=== PATIENT | male | born 1965 | race Caucasian/White ===

== ENCOUNTER 2022-03-18 13:45 | Outpatient (RCR) | payer OTHER, SELFPAY ==
[2022-03-11 08:15] VITALS: BP 134/85; BMI 29.5
--- NOTE | 2022-03-11 15:44 | HP.PCM_ITS ---
History of Present Illness Date of Service: 03/11/22 Chief Complaint: Open wound, left medial knee History of Wound: This is a 56-year-old male who sustained an injury to his left medial knee approximately 10 weeks ago. The wound occurred when a log rolled onto his left leg. He sustained a puncture wound to the left medial knee as result of contact with a log. He did not seek medical attention initially, but presented several weeks later to the urgent care center, at which time localized cellulitis had developed. He was started on Bactrim orally at that time. After several visits to the urgent care center on an outpatient basis, he subsequently presented at [facility] in [place], [place], where he was admitted with cellulitis and treated as an inpatient for 3 days. During his inpatient management, he underwent surgical incision and drainage of an abscess by Dr. Monroy, orthopedic surgeon. Patient has been on cephalexin and Bactrim orally since that time. According to the patient, no foreign body was identified within the wound itself. The wound has failed to heal. He has continued to have apparent low-level cellulitis since his hospitalization. He is also had mild swelling in his left lower extremity. 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 He is not diabetic, and he is not a smoker. The patient is of relatively normal body weight, with a BMI of 29.5. [facility] Medical History Cellulitis and abscess of left leg Penetrating wound of left thigh Home Medications Ranitidine [Zantac] 150 mg PO DAILY 02/03/13 [History Last Taken Unknown] Vitamin B Complex 1 tab PO DAILY 02/03/13 [History Last Taken Unknown] Allergy/AdvReac Type Severity Reaction Status Date / Time No Known Allergies Allergy Verified 02/03/13 16:51 Surgical History History of bilateral cataract extraction Social History Smoking Status: Former smoker Vital Signs Vital Signs Vital Signs: 03/11/22 08:15 Temperature Source Temporal Blood Pressure 134/85 H Blood Pressure Mean 101 Blood Pressure Source Monitor Blood Pressure Position Semi-Fowlers Blood Pressure Location Right Arm Weight Weight: 200 lb Body Mass Index (BMI) 29.5 Physical Exam Const alert, oriented x3, no apparent distress, average body habitus and well nourished General Appearance: cooperative, comfortable, well kempt and well developed Orientation / Consciousness: awake, oriented to person, oriented to place and oriented to time Exam Limitations: no limitations HEENT normocephalic, head/scalp atraumatic, hearing grossly normal bilaterally and external ears normal Head and Scalp: normal to inspection, normocephalic and atraumatic External Ear: external ears normal Eyes PERRL and EOMs intact bilaterally General Eye: normal appearance of both eyes Neck full ROM Resp normal respiratory effort, normal air movement, no retractions and no use of accessory muscles Effort and Inspection: able to speak in complete sentences Extremity no calf tenderness General Extremity: Negative for clubbing or cyanosis Skin Wound Narrative: A small open wound is noted on the medial aspect of the patient's left knee. Dimensions are documented elsewhere. There is a moderate amount of bioburden. Erythema is noted in the periwound area, extending into the calf. The erythema appears cellulitic in nature, though not intense. Neuro oriented x3, CN's II-XII intact bilaterally and moves all extremities Sensorium / Orientation: awake, alert, oriented to person, oriented to place and oriented to time Psych Appearance: grossly normal and appropriate Attitude: calm Activity / Motor Behavior: appropriate eye contact Speech: normal speech Mood & Affect: euthymic mood Thought Process: normal thought process Thought Content: normal thought content Attention / Concentration: attention grossly intact Debridement Note Debridement Note Wound debrided: Left medial knee Laterality: Left Type of Debridement: Excisional debridement Anesthesia Used: 5% Lidocaine Gel Depth: Down to and including healthy tissue and in the subcutaneous layer Percentage of wound debrided: 100 Instrument Used: 3mm curette Tissue Removed: Bioburden and nonviable tissue Severity: Fat Layer Exposed Amount of bleeding with debridement: Mild Bleeding Controlled with: Compression and gauze Patient tolerated procedure: Patient tolerated procedure well Post-Debridement Measurements and Additional Note: Post-Debridement Measurements/Treatment CORINA - Nurse 1 - General Ulcer Assessment Start: 03/11/22 08:15 Freq: Status: Active Protocol: DAHIANA Activity Type Activity Date Activity User E-sign Co-sign Detail Recorded Client Recorded Date Recorded By Document 03/11/22 08:15 SABRA [id number] 03/11/22 08:23 SABRA 03/11/22 08:15 WC - Today's Visit Information Type of service Initial Visit Arrival Mode Ambulatory Patient Identification Verified (Name & Yes ) Height and Weight Height 5 ft 9 in Weight 200 lb Weight in Pounds 200.0 lbs Body Mass Index (BMI) 29.5 BMI Classification Overweight BSA - Waldemar 2.07 Vital Signs Temperature Source Temporal Pulse Location Monitor Blood Pressure (90/60-120/80) 134/85 H Blood Pressure Mean 101 Source Monitor Position Semi-Fowlers Blood Pressure Location Right Arm History Since Last Visit- (Skip if this is Patient's initial visit) Have you changed medications since your No last visit? Any new allergies or adverse reactions No Had a fall/change in ADL's that may No increase risk of falls Signs or symptoms of abuse and/or No neglect since last visit Have you been in the hospital since your No last visit? Has dressing in place as prescribed No Has compression in place as prescribed N/A Has offloadiing in place as prescribed N/A Experienced any changes in pain level or No management Left Footwear Regular Shoe Right Footwear Regular Shoe Pain Scale: 0-10 Numeric Is Patient Pain Free? Yes - Nurse 1 - General Ulcer Measurement Start: 03/11/22 08:15 Freq: Status: Active Protocol: Activity Type Activity Date Activity User E-sign Co-sign Detail Recorded Client Recorded Date Recorded By Document 03/11/22 08:15 SABRA [id number] 03/11/22 08:23 SABRA 03/11/22 08:15 Wound Center Nurse 1 #1 Left medial knee -Current Size (cm) - Length 0.8 -Current Size (cm) - Width 0.4 -Current Size (cm) - Depth 0.1 -Total Square Cm 0.32 -Exudate Amt None Present -Wound Margin Distinct, Outline Attached -Granulation Amt Small (1-33%) -Granulation Quality [place] -Necrosis Amt None Present (0 %) -Texture (Nannette-wound Skin Appearance) Assessed, Scarring -Moisture (Nannette-wound Skin Appearance) No Abnormality, Assessed -Color (Nannette-wound Skin Appearance) No Abnormality, Assessed -Temperature (Nannette-wound Skin No Abnormality Appearance) (Pt Warm) -Tenderness on Palpation (Nannette-wound No Skin Appearance) -Ulcer Cleansing Rinsed/ Irrigated with Saline -Foul Odor after Cleansing No -Anesthetic Used 5% Lidocaine Gel Right Calf (cm) 38 Right Ankle (cm) 23.5 Left Calf (cm) 35.5 Left Ankle (cm) 25.5 WC - Nurse 2 - General Ulcer CM Notes Start: 03/11/22 08:15 Freq: Status: Active Protocol: Activity Type Activity Date Activity User E-sign Co-sign Detail Recorded Client Recorded Date Recorded By Document 03/11/22 11:54 PL [id number] 03/11/22 11:55 PL 03/11/22 11:54 Wound Center Nurse 2 #1 Left medial knee -Time 08:45 -Correct Patient Yes -Correct Side, Site, Position Yes -Correct Procedure Yes -Procedure Performed Yes -Type of Procedure Debridement -Clinical Debridement Subcutaneous -Tissue Removed Subcutaneous -Post Debridement (cm) - Length 0.8 -Post Debridement (cm) - Width 0.4 -Post Debridement (cm) - Depth 0.1 -Total Square (Post) (cm) 0.32 -Area of Debridement (cm) - Length 0.8 -Area of Debridement (cm) - Width 0.4 -Total Square (Area) (cm) 0.32 -Tunneling No -Undermining/Tunneling No -Circular Undermining No -Wound/Ulcer Outcome Not Healed -Ulcer Cleansing Rinsed/ Irrigated with Saline -Foul Odor after Cleansing No -Bioengineered Tissue No -Bleeding Controlled with Pressure -Treatment Response Procedure Tolerated Well -Debridement - Subq, 1st 20sq cm Yes Pain Scale: 0-10 Numeric Is Patient Pain Free? Yes - Nurse 3 - General Ulcer D/C NN Start: 03/11/22 08:15 Freq: Status: Active Protocol: Activity Type Activity Date Activity User E-sign Co-sign Detail Recorded Client Recorded Date Recorded By Document 03/11/22 09:30 KR [id number] 03/11/22 09:31 KR 03/11/22 09:30 Wound Care Nurse 3 #1 Left medial knee -Ulcer Cleansing Rinsed/ Irrigated with Saline -Primary Dressing Applied Nugauze, Iodoform -Other Dressing dakins -Primary Dressing Covered/Secured with Dry Gauze, Secured with Tape -Nugauze, Iodoform 1/4 1 Right -Size of Tubigrip Used Size F Pain Scale: 0-10 Numeric Is Patient Pain Free? Yes WC - Visit Discharge Discharge Condition Stable Ambulatory Status Ambulatory Transportation Private Auto Assessment/Plan Assessment/Plan (1) Penetrating wound of left thigh: CODE(S): S71.132A - Puncture wound without foreign body, left thigh, initial encounter QUALIFIERS: Encounter type: initial encounter Qualified Code(s): S71.132A - Puncture wound without foreign body, left thigh, initial encounter (2) Cellulitis and abscess of left leg: CODE(S): L03.116 - Cellulitis of left lower limb; L02.416 - Cutaneous abscess of left lower limb (3) History of bilateral cataract extraction: CODE(S): Z98.41 - Cataract extraction status, right eye; Z98.42 - Cataract extraction status, left eye PLAN: Plan This is a 56-year-old male who sustained a puncture wound to the left medial knee approximately 10 weeks ago. He has been treated for cellulitis, both as an outpatient, and a 3-day inpatient course at [facility] in [place], [place]. He remains on both Bactrim and cephalexin orally. Patient's wound has been debrided in the wound healing center today. We are to implement the use of 1/4 inch Nu Gauze, moistened with Dakin's, which will be used to pack the wound on a daily basis. The patient has been instructed in appropriate means of application. He has been instructed to continue with the oral antibiotics, as previously prescribed. He is to return in 1 week for reeva luation. [facility] The patient has been encouraged to consume a healthy, well-balanced diet. Total time: 60 minutes
[2022-03-18 13:19] VITALS: BP 138/93; PULSE 92; TEMP 36.2; BMI 29.5
--- NOTE | 2022-03-18 14:21 | HP.PCM_ITS ---
History of Present Illness Date of Service: 03/18/22 Chief Complaint: Open wound, left medial knee History of Wound: This is a 56-year-old male who sustained an injury to his left medial knee approximately 10 weeks . The wound occurred when a log rolled onto his left leg. He sustained a puncture wound to the left medial knee as result of contact with a log. He did not seek medical attention initially, but presented several weeks later to the urgent care center, at which time localized cellulitis had developed. He was started on Bactrim orally at that time. After several visits to the urgent care center on an outpatient basis, he subsequently presented at [facility] in [place], [place], where he was admitted with cellulitis and treated as an inpatient for 3 days. During his inpatient management, he underwent surgical incision and drainage of an abscess by Dr. Monroy, orthopedic surgeon. Patient has been on cephalexin and Bactrim orally since that time. According to the patient, no foreign body was identified within the wound itself. The wound has failed to heal. He has continued to have apparent low-level cellulitis since his hospitalization. He is also had mild swelling in his left lower extremity. 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 He is not diabetic, and he is not a smoker. The patient is of relatively normal body weight, with a BMI of 29.5. [facility] Medical History Cellulitis and abscess of left leg Penetrating wound of left thigh Home Medications Ranitidine [Zantac] 150 mg PO DAILY 02/03/13 [History Last Taken Unknown] Vitamin B Complex 1 tab PO DAILY 02/03/13 [History Last Taken Unknown] Allergy/AdvReac Type Severity Reaction Status Date / Time No Known Allergies Allergy Verified 02/03/13 16:51 Surgical History History of bilateral cataract extraction Social History Smoking Status: Former smoker Vital Signs Vital Signs Vital Signs: 03/18/22 13:19 Temperature 97.2 F L Temperature Source Temporal Pulse Rate 92 Blood Pressure 138/93 H Blood Pressure Mean 108 Blood Pressure Source Monitor Weight Weight: 200 lb Body Mass Index (BMI) 29.5 Debridement Note Debridement Note Post-Debridement Measurements and Additional Note: Post-Debridement Measurements/Treatment CORINA - Nurse 1 - General Ulcer Assessment Start: 03/11/22 08:15 Freq: Status: Active Protocol: DAHIANA Activity Type Activity Date Activity User E-sign Co-sign Detail Recorded Client Recorded Date Recorded By Document 03/11/22 08:15 KR [id number] 03/11/22 08:23 KR Document 03/18/22 13:19 AK [id number] 03/18/22 13:20 AK 03/11/22 03/18/22 08:15 13:19 WC - Today's Visit Information Type of service Initial Visit Follow-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 ) Arrival Mode Ambulatory Ambulatory Patient Identification Verified (Name & Yes Yes ) Patient Requires Transmission-Based No Precautions Safety Precautions NA Height and Weight Height 5 ft 9 in Weight 200 lb Weight in Pounds 200.0 lbs Body Mass Index (BMI) 29.5 29.5 BMI Classification Overweight Overweight BSA - Waldemar 2.07 Vital Signs Temperature (97.8 F-99.1 F) 97.2 F L Temperature Source Temporal Temporal Pulse Rate (60-100) 92 Pulse Location Monitor Monitor Blood Pressure (90/60-120/80) 134/85 H 138/93 H Blood Pressure Mean 101 108 Source Monitor Monitor Position Semi-Fowlers Blood Pressure Location Right Arm History Since Last Visit- (Skip if this is Patient's initial visit) Have you changed medications since your No No last visit? Any new allergies or adverse reactions No No Had a fall/change in ADL's that may No No increase risk of falls Signs or symptoms of abuse and/or No No neglect since last visit Have you been in the hospital since your No No last visit? Has dressing in place as prescribed No Yes Has compression in place as prescribed N/A N/A Has offloadiing in place as prescribed N/A N/A Experienced any changes in pain level or No No management Left Footwear Regular Shoe Regular Shoe Right Footwear Regular Shoe Regular Shoe Pain Scale: 0-10 Numeric Is Patient Pain Free? Yes Yes CORINA - Nurse 1 - General Ulcer Measurement Start: 03/11/22 08:15 Freq: Status: Active Protocol: Activity Type Activity Date Activity User E-sign Co-sign Detail Recorded Client Recorded Date Recorded By Document 03/11/22 08:15 KR [id number] 03/11/22 08:23 KR Document 03/18/22 13:19 AK [id number] 03/18/22 13:20 AK 03/11/22 03/18/22 08:15 13:19 Wound Center Nurse 1 #1 Left medial knee -Combined with other wound No -Current Size (cm) - Length 0.8 0.3 -Current Size (cm) - Width 0.4 0.3 -Current Size (cm) - Depth 0.1 0.2 -Total Square Cm 0.32 0.09 -Photo Taken Yes -Tunneling No -Undermining/Tunneling No -Circular Undermining No -Change in Wound Grade/Stage No -Exudate Amt None Present None Present -Wound Margin Distinct, Outline Attached -Granulation Amt Small (1-33%) None Present (0 %) -Granulation Quality [place] N/A -Slough/Fibrin No -Necrosis Amt None Present (0 None Present (0 %) %) -Structure Exposed N/A -Texture (Nannette-wound Skin Appearance) Assessed, No Abnormality, Scarring Assessed -Moisture (Nannette-wound Skin Appearance) No Abnormality, No Abnormality, Assessed Assessed -Color (Nannette-wound Skin Appearance) No Abnormality, No Abnormality, Assessed Assessed -Temperature (Nannette-wound Skin No Abnormality No Abnormality Appearance) (Pt Warm) (Pt Warm) -Tenderness on Palpation (Nannette-wound No No Skin Appearance) -Ulcer Cleansing Rinsed/ Rinsed/ Irrigated with Irrigated with Saline Saline -Foul Odor after Cleansing No No -Anesthetic Used 5% Lidocaine 5% Lidocaine Gel Gel Lower Limb Edema Present No Right Calf (cm) 38 Right Ankle (cm) 23.5 Left Calf (cm) 35.5 Left Ankle (cm) 25.5 WC - Nurse 2 - General Ulcer CM Notes Start: 03/11/22 08:15 Freq: Status: Active Protocol: Activity Type Activity Date Activity User E-sign Co-sign Detail Recorded Client Recorded Date Recorded By Document 03/11/22 11:54 PL [id number] 03/11/22 11:55 PL 03/11/22 11:54 Wound Center Nurse 2 #1 Left medial knee -Time 08:45 -Correct Patient Yes -Correct Side, Site, Position Yes -Correct Procedure Yes -Procedure Performed Yes -Type of Procedure Debridement -Clinical Debridement Subcutaneous -Tissue Removed Subcutaneous -Post Debridement (cm) - Length 0.8 -Post Debridement (cm) - Width 0.4 -Post Debridement (cm) - Depth 0.1 -Total Square (Post) (cm) 0.32 -Area of Debridement (cm) - Length 0.8 -Area of Debridement (cm) - Width 0.4 -Total Square (Area) (cm) 0.32 -Tunneling No -Undermining/Tunneling No -Circular Undermining No -Wound/Ulcer Outcome Not Healed -Ulcer Cleansing Rinsed/ Irrigated with Saline -Foul Odor after Cleansing No -Bioengineered Tissue No -Bleeding Controlled with Pressure -Treatment Response Procedure Tolerated Well -Debridement - Subq, 1st 20sq cm Yes Pain Scale: 0-10 Numeric Is Patient Pain Free? Yes WC - Nurse 3 - General Ulcer D/C NN Start: 03/11/22 08:15 Freq: Status: Active Protocol: Activity Type Activity Date Activity User E-sign Co-sign Detail Recorded Client Recorded Date Recorded By Document 03/11/22 09:30 [id number] 03/11/22 09:31 KR Document 03/18/22 13:50 [id number] 03/18/22 13:51 03/11/22 03/18/22 09:30 13:50 Wound Care Nurse 3 #1 Left medial knee -Ulcer Cleansing Rinsed/ Rinsed/ Irrigated with Irrigated with Saline Saline -Primary Dressing Applied Nugauze, Iodoform -Other Dressing dakins dakins -Primary Dressing Covered/Secured with Dry Gauze, Dry Gauze, Secured with Secured with Tape Tape -Nugauze, Iodoform 1/4 1 Right -Size of Tubigrip Used Size F Pain Scale: 0-10 Numeric Is Patient Pain Free? Yes Yes WC - Visit Discharge Discharge Condition Stable Stable Ambulatory Status Ambulatory Ambulatory Transportation Private Auto Private Auto
--- NOTE | 2022-03-18 14:45 | HP.PCM_ITS ---
History of Present Illness Date of Service: 03/18/22 Chief Complaint: Open wound, left medial knee History of Wound: This is a 56-year-old male who sustained an injury to his left medial knee approximately 10 weeks prior to presentation. The wound occurred when a log rolled onto his left leg. He sustained a puncture wound to the left medial knee as result of contact with a log. He did not seek medical attention initially, but presented several weeks later to the urgent care center, at which time localized cellulitis had developed. He was started on Bactrim orally at that time. After several visits to the urgent care center on an outpatient basis, he subsequently presented at [facility] in [place], [place], where he was admitted with cellulitis and treated as an inpatient for 3 days. During his inpatient management, he underwent surgical incision and drainage of an abscess by Dr. Monroy, orthopedic surgeon. Patient has been on cephalexin and Bactrim orally since that time. According to the patient, no foreign body was identified within the wound itself. The wound has failed to heal. He has continued to have apparent low-level cellulitis since his hospitalization. He is also had mild swelling in his left lower extremity. 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 He is not diabetic, and he is not a smoker. The patient is of relatively normal body weight, with a BMI of 29.5. [facility] Medical History Cellulitis and abscess of left leg Penetrating wound of left thigh Home Medications Ranitidine [Zantac] 150 mg PO DAILY 02/03/13 [History Last Taken Unknown] Vitamin B Complex 1 tab PO DAILY 02/03/13 [History Last Taken Unknown] Allergy/AdvReac Type Severity Reaction Status Date / Time No Known Allergies Allergy Verified 02/03/13 16:51 Surgical History History of bilateral cataract extraction Social History Smoking Status: Former smoker Vital Signs Vital Signs Vital Signs: 03/18/22 13:19 Temperature 97.2 F L Temperature Source Temporal Pulse Rate 92 Blood Pressure 138/93 H Blood Pressure Mean 108 Blood Pressure Source Monitor Weight Weight: 200 lb Body Mass Index (BMI) 29.5 Physical Exam Const alert, oriented x3, no apparent distress, average body habitus and well nourished General Appearance: cooperative, comfortable, well kempt and well developed Orientation / Consciousness: awake, oriented to person, oriented to place and oriented to time Exam Limitations: no limitations HEENT normocephalic, head/scalp atraumatic, hearing grossly normal bilaterally and external ears normal Head and Scalp: normal to inspection, normocephalic and atraumatic External Ear: external ears normal Eyes PERRL and EOMs intact bilaterally General Eye: normal appearance of both eyes Neck full ROM Resp normal respiratory effort, normal air movement, no retractions and no use of accessory muscles Effort and Inspection: able to speak in complete sentences Extremity no calf tenderness General Extremity: Negative for clubbing or cyanosis Skin Wound Narrative: A small open wound is noted on the medial aspect of the patient's left knee. Dimensions are documented elsewhere. The wound is smaller than noted 1 week ago. There is a moderate amount of bioburden. No significant erythema is noted in the periwound area, signifying an improvement since 1 week ago. Neuro oriented x3, CN's II-XII intact bilaterally and moves all extremities Sensorium / Orientation: awake, alert, oriented to person, oriented to place and oriented to time Psych Appearance: grossly normal and appropriate Attitude: calm Activity / Motor Behavior: appropriate eye contact Speech: normal speech Mood & Affect: euthymic mood Thought Process: normal thought process Thought Content: normal thought content Attention / Concentration: attention grossly intact Debridement Note Debridement Note Wound debrided: Left medial knee Laterality: Left Type of Debridement: Excisional debridement Anesthesia Used: 5% Lidocaine Gel Depth: Down to and including healthy tissue and in the subcutaneous layer Percentage of wound debrided: 100 Instrument Used: 3mm curette Tissue Removed: Bioburden and nonviable tissue Severity: Fat Layer Exposed Amount of bleeding with debridement: Mild Bleeding Controlled with: Compression and gauze Patient tolerated procedure: Patient tolerated procedure well Post-Debridement Measurements and Additional Note: Post-Debridement Measurements/Treatment CORINA - Nurse 1 - General Ulcer Assessment Start: 03/11/22 08:15 Freq: Status: Active Protocol: DAHIANA Activity Type Activity Date Activity User E-sign Co-sign Detail Recorded Client Recorded Date Recorded By Document 03/11/22 08:15 SABRA [id number] 03/11/22 08:23 KR Document 03/18/22 13:19 AK [id number] 03/18/22 13:20 AK 03/11/22 03/18/22 08:15 13:19 - Today's Visit Information Type of service Initial Visit Follow-up Visit (Physician/MANAGER M[employer] ) Arrival Mode Ambulatory Ambulatory Patient Identification Verified (Name & Yes Yes ) Patient Requires Transmission-Based No Precautions Safety Precautions NA Height and Weight Height 5 ft 9 in Weight 200 lb Weight in Pounds 200.0 lbs Body Mass Index (BMI) 29.5 29.5 BMI Classification Overweight Overweight BSA - Waldemar 2.07 Vital Signs Temperature (97.8 F-99.1 F) 97.2 F L Temperature Source Temporal Temporal Pulse Rate (60-100) 92 Pulse Location Monitor Monitor Blood Pressure (90/60-120/80) 134/85 H 138/93 H Blood Pressure Mean 101 108 Source Monitor Monitor Position Semi-Fowlers Blood Pressure Location Right Arm History Since Last Visit- (Skip if this is Patient's initial visit) Have you changed medications since your No No last visit? Any new allergies or adverse reactions No No Had a fall/change in ADL's that may No No increase risk of falls Signs or symptoms of abuse and/or No No neglect since last visit Have you been in the hospital since your No No last visit? Has dressing in place as prescribed No Yes Has compression in place as prescribed N/A N/A Has offloadiing in place as prescribed N/A N/A Experienced any changes in pain level or No No management Left Footwear Regular Shoe Regular Shoe Right Footwear Regular Shoe Regular Shoe Pain Scale: 0-10 Numeric Is Patient Pain Free? Yes Yes - Nurse 1 - General Ulcer Measurement Start: 03/11/22 08:15 Freq: Status: Active Protocol: Activity Type Activity Date Activity User E-sign Co-sign Detail Recorded Client Recorded Date Recorded By Document 03/11/22 08:15 SABRA [id number] 03/11/22 08:23 KR Document 03/18/22 13:19 SHASHANK [id number] 03/18/22 13:20 SHASHANK 03/11/22 03/18/22 08:15 13:19 Wound Center Nurse 1 #1 Left medial knee -Combined with other wound No -Current Size (cm) - Length 0.8 0.3 -Current Size (cm) - Width 0.4 0.3 -Current Size (cm) - Depth 0.1 0.2 -Total Square Cm 0.32 0.09 -Photo Taken Yes -Tunneling No -Undermining/Tunneling No -Circular Undermining No -Change in Wound Grade/Stage No -Exudate Amt None Present None Present -Wound Margin Distinct, Outline Attached -Granulation Amt Small (1-33%) None Present (0 %) -Granulation Quality Tatum N/A -Slough/Fibrin No -Necrosis Amt None Present (0 None Present (0 %) %) -Structure Exposed N/A -Texture (Nannette-wound Skin Appearance) Assessed, No Abnormality, Scarring Assessed -Moisture (Nannette-wound Skin Appearance) No Abnormality, No Abnormality, Assessed Assessed -Color (Nannette-wound Skin Appearance) No Abnormality, No Abnormality, Assessed Assessed -Temperature (Nannette-wound Skin No Abnormality No Abnormality Appearance) (Pt Warm) (Pt Warm) -Tenderness on Palpation (Nannette-wound No No Skin Appearance) -Ulcer Cleansing Rinsed/ Rinsed/ Irrigated with Irrigated with Saline Saline -Foul Odor after Cleansing No No -Anesthetic Used 5% Lidocaine 5% Lidocaine Gel Gel Lower Limb Edema Present No Right Calf (cm) 38 Right Ankle (cm) 23.5 Left Calf (cm) 35.5 Left Ankle (cm) 25.5 WC - Nurse 2 - General Ulcer CM Notes Start: 03/11/22 08:15 Freq: Status: Active Protocol: Activity Type Activity Date Activity User E-sign Co-sign Detail Recorded Client Recorded Date Recorded By Document 03/11/22 11:54 PL [id number] 03/11/22 11:55 PL 03/11/22 11:54 Wound Center Nurse 2 #1 Left medial knee -Time 08:45 -Correct Patient Yes -Correct Side, Site, Position Yes -Correct Procedure Yes -Procedure Performed Yes -Type of Procedure Debridement -Clinical Debridement Subcutaneous -Tissue Removed Subcutaneous -Post Debridement (cm) - Length 0.8 -Post Debridement (cm) - Width 0.4 -Post Debridement (cm) - Depth 0.1 -Total Square (Post) (cm) 0.32 -Area of Debridement (cm) - Length 0.8 -Area of Debridement (cm) - Width 0.4 -Total Square (Area) (cm) 0.32 -Tunneling No -Undermining/Tunneling No -Circular Undermining No -Wound/Ulcer Outcome Not Healed -Ulcer Cleansing Rinsed/ Irrigated with Saline -Foul Odor after Cleansing No -Bioengineered Tissue No -Bleeding Controlled with Pressure -Treatment Response Procedure Tolerated Well -Debridement - Subq, 1st 20sq cm Yes Pain Scale: 0-10 Numeric Is Patient Pain Free? Yes - Nurse 3 - General Ulcer D/C NN Start: 03/11/22 08:15 Freq: Status: Active Protocol: Activity Type Activity Date Activity User E-sign Co-sign Detail Recorded Client Recorded Date Recorded By Document 03/11/22 09:30 SABRA [id number] 03/11/22 09:31 KR Document 03/18/22 13:50 [id number] 03/18/22 13:51 03/11/22 03/18/22 09:30 13:50 Wound Care Nurse 3 #1 Left medial knee -Ulcer Cleansing Rinsed/ Rinsed/ Irrigated with Irrigated with Saline Saline -Primary Dressing Applied Nugauze, Iodoform -Other Dressing dakins dakins -Primary Dressing Covered/Secured with Dry Gauze, Dry Gauze, Secured with Secured with Tape Tape -Nugauze, Iodoform 1/4 1 Right -Size of Tubigrip Used Size F Pain Scale: 0-10 Numeric Is Patient Pain Free? Yes Yes - Visit Discharge Discharge Condition Stable Stable Ambulatory Status Ambulatory Ambulatory Transportation Private Auto Private Auto Assessment/Plan Assessment/Plan (1) Penetrating wound of left thigh: CODE(S): S71.132A - Puncture wound without foreign body, left thigh, initial encounter QUALIFIERS: Encounter type: initial encounter Qualified Code(s): S71.132A - Puncture wound without foreign body, left thigh, initial encounter (2) Cellulitis and abscess of left leg: CODE(S): L03.116 - Cellulitis of left lower limb; L02.416 - Cutaneous abscess of left lower limb (3) History of bilateral cataract extraction: CODE(S): Z98.41 - Cataract extraction status, right eye; Z98.42 - Cataract extraction status, left eye PLAN: Plan This is a 56-year-old male who sustained a puncture wound to the left medial knee approximately 10 weeks prior to presentation. He had been treated for cellulitis, both as an outpatient, and a 3-day inpatient course at [facility] in [place], [place]. He remained on both Bactrim and cephalexin orally, which have now been completed. Patient's wound has been debrided in the wound healing center today. We are to continue the use of 1/4 inch Nu Gauze, moistened with Dakin's, which will be used to pack the wound on a daily basis. He is to elevate his lower extremities much as possible, and use Tubigrip for compression in the left lower extremity. He is to return in 1 week for reevaluation. We will attempt to obtain medical records from the outlying hospital. The patient has been encouraged to consume a healthy, well-balanced diet. Swab cultures of the wound obtained last week are seen to be negative. Total time: 29 minutes
== END 2022-03-19 23:59 | disposition home or self-care (01) ==
LOC: WC 13:45
PROVIDERS: PCP Nurse Practitioner Family; Visit Provider Surgery
DX: S81.032D Puncture wound without foreign body, left knee, subsequent encounter (principal); S71.132A Puncture wound without foreign body, left thigh, initial encounter; S71.132D Puncture wound without foreign body, left thigh, subsequent encounter; L03.116 Cellulitis of left lower limb; L02.416 Cutaneous abscess of left lower limb; W26.8XXD Contact with other sharp object(s), not elsewhere classified, subsequent encounter; Z87.891 Personal history of nicotine dependence; M79.89 Other specified soft tissue disorders
CPT/HCPCS: 11042; 87070; 87075; 87205; 99213; G0463

== ENCOUNTER 2022-03-25 08:19 | Outpatient (RCR) | payer OTHER, SELFPAY ==
[2022-03-20 00:43] VITALS: BP 138/93; PULSE 92; TEMP 36.2; BMI 29.5
[2022-03-25 08:25] VITALS: BP 146/85; PULSE 75; TEMP 35.7; BMI 29.5
--- NOTE | 2022-03-25 15:49 | HP.PCM_ITS ---
History of Present Illness Date of Service: 03/25/22 Chief Complaint: Open wound, left medial knee History of Wound: This is a 56-year-old male who sustained an injury to his left medial knee approximately 10 weeks prior to presentation. The wound occurred when a log rolled onto his left leg. He sustained a puncture wound to the left medial knee as result of contact with a log. He did not seek medical attention initially, but presented several weeks later to the urgent care center, at which time localized cellulitis had developed. He was started on Bactrim orally at that time. After several visits to the urgent care center on an outpatient basis, he subsequently presented at [facility] in [place], [place], where he was admitted with cellulitis and treated as an inpatient for 3 days. During his inpatient management, he underwent surgical incision and drainage of an abscess by Dr. Monroy, orthopedic surgeon. Patient has been on cephalexin and Bactrim orally since that time. According to the patient, no foreign body was identified within the wound itself. The wound has failed to heal. He has continued to have apparent low-level cellulitis since his hospitalization. He is also had mild swelling in his left lower extremity. 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 He is not diabetic, and he is not a smoker. The patient is of relatively normal body weight, with a BMI of 29.5. [facility] Medical History Cellulitis and abscess of left leg Penetrating wound of left thigh Home Medications Ranitidine [Zantac] 150 mg PO DAILY 02/03/13 [History Last Taken Unknown] Vitamin B Complex 1 tab PO DAILY 02/03/13 [History Last Taken Unknown] Allergy/AdvReac Type Severity Reaction Status Date / Time No Known Allergies Allergy Verified 02/03/13 16:51 Surgical History History of bilateral cataract extraction Social History Smoking Status: Former smoker Vital Signs Vital Signs Vital Signs: 03/25/22 08:25 Temperature 96.2 F L Temperature Source Temporal Pulse Rate 75 Blood Pressure 146/85 H Blood Pressure Mean 105 Blood Pressure Source Monitor Weight Weight: 200 lb Body Mass Index (BMI) 29.5 Physical Exam Const alert, oriented x3, no apparent distress, average body habitus and well nourished General Appearance: cooperative, comfortable, well kempt and well developed Orientation / Consciousness: awake, oriented to person, oriented to place and oriented to time Exam Limitations: no limitations HEENT normocephalic, head/scalp atraumatic, hearing grossly normal bilaterally and external ears normal Head and Scalp: normal to inspection, normocephalic and atraumatic External Ear: external ears normal Eyes PERRL and EOMs intact bilaterally General Eye: normal appearance of both eyes Neck full ROM Resp normal respiratory effort, normal air movement, no retractions and no use of accessory muscles Effort and Inspection: able to speak in complete sentences Extremity no calf tenderness General Extremity: Negative for clubbing or cyanosis Skin Wound Narrative: The traumatic wound on the medial aspect of the patient's left knee is now completely healed and epithelialized. Neuro oriented x3, CN's II-XII intact bilaterally and moves all extremities Sensorium / Orientation: awake, alert, oriented to person, oriented to place and oriented to time Psych Appearance: grossly normal and appropriate Attitude: calm Activity / Motor Behavior: appropriate eye contact Speech: normal speech Mood & Affect: euthymic mood Thought Process: normal thought process Thought Content: normal thought content Attention / Concentration: attention grossly intact Debridement Note Debridement Note No debridement was completed: No debridement was completed today (The patient's wound is completely healed.) Post-Debridement Measurements and Additional Note: Post-Debridement Measurements/Treatment - Nurse 1 - General Ulcer Assessment Start: 03/25/22 08:23 Freq: Status: Active Protocol: DAHIANA Activity Type Activity Date Activity User E-sign Co-sign Detail Recorded Client Recorded Date Recorded By Document 03/25/22 08:25 SHASHANK [id number] 03/25/22 08:40 SHASHANK 03/25/22 08:25 - Today's Visit Information Type of service Follow-up Visit (Physician/SENIOR GIS ANALYST ) Arrival Mode Ambulatory Patient Identification Verified (Name & Yes ) Patient Requires Transmission-Based No Precautions Safety Precautions NA Height and Weight Body Mass Index (BMI) 29.5 BMI Classification Overweight Vital Signs Temperature (97.8 F-99.1 F) 96.2 F L Temperature Source Temporal Pulse Rate (60-100) 75 Pulse Location Monitor Blood Pressure (90/60-120/80) 146/85 H Blood Pressure Mean 105 Source Monitor History Since Last Visit- (Skip if this is Patient's initial visit) Have you changed medications since your No last visit? Any new allergies or adverse reactions No Had a fall/change in ADL's that may No increase risk of falls Signs or symptoms of abuse and/or No neglect since last visit Have you been in the hospital since your No last visit? Has dressing in place as prescribed Yes Has compression in place as prescribed Yes Has offloadiing in place as prescribed N/A Experienced any changes in pain level or No management Left Footwear Regular Shoe Right Footwear Regular Shoe Pain Scale: 0-10 Numeric Is Patient Pain Free? Yes WC - Nurse 1 - General Ulcer Measurement Start: 03/25/22 08:23 Freq: Status: Active Protocol: Activity Type Activity Date Activity User E-sign Co-sign Detail Recorded Client Recorded Date Recorded By Document 03/25/22 08:25 SHASHANK [id number] 03/25/22 08:40 SHASHANK 03/25/22 08:25 Wound Center Nurse 1 #1 Left medial knee -Combined with other wound No -Current Size (cm) - Length 0.1 -Current Size (cm) - Width 0.1 -Current Size (cm) - Depth 0.1 -Total Square Cm 0.01 -Date of Last Picture (Recall this 03/25/22 field) -Photo Taken Yes -Tunneling No -Undermining/Tunneling No -Circular Undermining No -Change in Wound Grade/Stage No -Exudate Amt None Present -Granulation Amt None Present (0 %) -Granulation Quality N/A -Necrosis Amt None Present (0 %) -Structure Exposed N/A -Texture (Nannette-wound Skin Appearance) No Abnormality, Assessed -Moisture (Nannette-wound Skin Appearance) No Abnormality, Assessed -Color (Nannette-wound Skin Appearance) No Abnormality, Assessed -Temperature (Nannette-wound Skin No Abnormality Appearance) (Pt Warm) -Tenderness on Palpation (Nannette-wound No Skin Appearance) -Ulcer Cleansing Rinsed/ Irrigated with Saline -Foul Odor after Cleansing No Lower Limb Edema Present No WC - Nurse 2 - General Ulcer CM Notes Start: 03/25/22 08:23 Freq: Status: Active Protocol: Activity Type Activity Date Activity User E-sign Co-sign Detail Recorded Client Recorded Date Recorded By Document 03/25/22 12:24 PL [id number] 03/25/22 12:29 PL 03/25/22 12:24 Wound Center Nurse 2 #1 Left medial knee -Procedure Performed No -Wound/Ulcer Outcome Healed- Epithelialized Pain Scale: 0-10 Numeric Is Patient Pain Free? Yes WC - Nurse 3 - General Ulcer D/C NN Start: 03/25/22 08:23 Freq: Status: Active Protocol: Activity Type Activity Date Activity User E-sign Co-sign Detail Recorded Client Recorded Date Recorded By Document 03/25/22 08:41 AK [id number] 03/25/22 08:41 AK 03/25/22 08:41 Wound Care Nurse 3 #1 Left medial knee -Ulcer Cleansing Rinsed/ Irrigated with Saline -Foul Odor after Cleansing No -Negative Pressure Wound Therapy N/A -Other Dressing bandaid to protect Pain Scale: 0-10 Numeric Is Patient Pain Free? Yes WC - Visit Discharge Discharge Condition Stable Transportation Private Auto Medication Reconcilliation completed & Yes provided to patient/care provider Clinical Summary of Care Provided Yes Assessment/Plan Assessment/Plan (1) Penetrating wound of left thigh: CODE(S): S71.132A - Puncture wound without foreign body, left thigh, initial encounter QUALIFIERS: Encounter type: subsequent encounter Qualified Code(s): S71.132D - Puncture wound without foreign body, left thigh, subsequent encounter (2) Cellulitis and abscess of left leg: CODE(S): L03.116 - Cellulitis of left lower limb; L02.416 - Cutaneous abscess of left lower limb (3) History of bilateral cataract extraction: CODE(S): Z98.41 - Cataract extraction status, right eye; Z98.42 - Cataract extraction status, left eye PLAN: Plan This is a 56-year-old male who sustained a puncture wound to the left medial knee approximately 10 weeks prior to presentation. He had been treated for cellulitis, both as an outpatient, and a 3-day inpatient course at [facility] in [place], [place]. Upon the patient's presentation today, his traumatic wound is completely healed and epithelialized. The patient is to be discharged, and will follow-up henceforth on an as-needed basis. Total time: 22 minutes
== END 2022-03-26 13:40 | disposition home or self-care (01) ==
LOC: WC 08:19
PROVIDERS: PCP Nurse Practitioner Family; Visit Provider Surgery
DX: Z09 Encounter for follow-up examination after completed treatment for conditions other than malignant neoplasm (principal); Z79.899 Other long term (current) drug therapy; Z87.891 Personal history of nicotine dependence
CPT/HCPCS: 99213; G0463

== ENCOUNTER → 2023-04-27 | Outpatient (CLI) | payer OTHER, SELFPAY ==
--- NOTE | 2023-04-27 | FLU_PTH ---
PATHOLOGY RESULTS PATIENT: DAVID BIANCHI LOC: [facility] U#:[id number] AGE/SX: 57/M ROOM: RE04/27/[address]: Dr. Andrei Murray MD : 1965 BED: DIS: 04/27/2023 SPEC #: [id number] RECD: 04/27/23 10:12 STATUS: RAJNI REAyan #: [id number] ISRAEL: 04/27/23 00:[address]: Andrei Murray DEPT: CYTOLOGY RECD BY: Devonte Osuna ENTERED: 04/27/23 10:12 SP TYPE: Fluid OTHR DR: Mallika Jessica, LINDSAY-C Tissues: Thyroid gland, NOS Procedures: Special Stain Group II Surgery Specimen Level IV Cytospin Fluid HEADER OPERATION: Left thyroid fine needle aspiration PRE-OP DIAGNOSIS: Thyroid nodule TISSUE SUBMITTED: Left thyroid x6 slides DIAGNOSIS CYTOLOGY Left thyroid, fine needle aspiration (smears): Consistent with benign follicular/colloid nodule (Hol[place] Category II). Adequate for evaluation. See comment. SJ:jacob 04/27/2023 COMMENT Multiple microfollicles without atypia are noted. The findings may represent adenomatoid nodule. Correlation with clinical, radiologic findings and appropriate follow up are necessary. The [place] System for thyroid diagnostic categorization was used in the evaluation of this case. Case has been reviewed in consultation with Dr. Frazier who concurs with the above diagnosis. IDC:AM CYTOLOGY STUDY Slides are reviewed. CYTOLOGY GROSS Received are six smears labeled with the patient's name and designated per the requisition as left thyroid. Submitted for staining. / jacob 04/27/2023 TC:5 CPT: 09553
== END | disposition home or self-care (01) ==
LOC: LABSPEC 09:22
PROVIDERS: PCP Nurse Practitioner Family; Referring Provider Surgery; Visit Provider Surgery
DX: E04.1 Nontoxic single thyroid nodule (principal)
CPT/HCPCS: 88108; 88305; 88313